=== PATIENT | male | born 1985 | race American Indian/Alaskan Native ===

== ENCOUNTER 2018-03-07 13:23 | Emergency (ER) | payer MEDICAID ==
[~2018-03-07] VITALS: Ht 170.2 cm; Wt 79.5 kg
[2018-03-07 13:54] VITALS: BP 108/71
== END 2018-03-07 14:14 | disposition home or self-care (01) ==
LOC: ER 13:23
DX: Z02.89 Encounter for other administrative examinations (principal); F15.90 Other stimulant use, unspecified, uncomplicated; F12.90 Cannabis use, unspecified, uncomplicated
CPT/HCPCS: 99281

== ENCOUNTER 2022-01-12 12:41 | Emergency (ER) | payer MEDICAID ==
[~2022-01-12] VITALS: Ht 170.2 cm; Wt 96.4 kg
[2022-01-12 12:46] VITALS: BP 140/85
[2022-01-12] MEDS ORDERED: sulfamethoxazole/trimethoprim DS (800/160mg) tablet PO ONE (14:50)
[2022-01-12] MEDS ORDERED: SULF1TAB49 PO (15:04)
== END 2022-01-12 15:22 | disposition home or self-care (01) ==
LOC: ER 12:41
DX: L02.415 Cutaneous abscess of right lower limb (principal); F15.10 Other stimulant abuse, uncomplicated; Z56.0 Unemployment, unspecified; Z79.899 Other long term (current) drug therapy
CPT/HCPCS: 99283

== ENCOUNTER 2024-11-21 07:22 | Emergency (ER) | payer MEDICAID ==
[~2024-11-21] VITALS: Ht 167.6 cm; Wt 92.0 kg
[2024-11-21] MEDS ORDERED: NO HOME MEDS (08:03)
--- NOTE | 2024-11-21 09:03 | Physician Documentation ---
History of Present Illness ~ Chief Complaint: Leg Pain Stated Complaint: RIGHT UPPER LEG PAIN Time Seen by MD: 07:29 Primary Medical Doctor: [facility] Mode of Arrival: EMS HPI 39 year old male fell onto concrete last night, struck lateral aspect of R thigh, reports difficulty walking and extreme pain. Denies LOC, other injury. Tetanus witin 5 years: No Medication Reconciliation Allergies: Coded Allergies: No Known Allergies (Unverified , 11/21/24) Miscellaneous Medications Home Med List (No Home Medications), (Reported) Past Medical History Past Medical History: No Pertinent History Past Surgical History: no surgical history Smoking Status: Unknown if ever smoked Alcohol Use: None Drug Use: methamphetamine Lives In: Homeless Review of Systems All Other Systems at this time: Reviewed and Negative Physical Exam Vital Signs: RN Vital Signs have been reviewed: Yes, Temperature: 99.1, Source: Oral, Heart Rate: 71, Respiratory Rate: 16, BP: 128/84, Pulse Oximetry: 97, Weight: 92.000 Physical Exam HEENT: PERRL, moist oral mucosa, EOMI Pulmonary: No respiratory distress MSK: no deformity; R lateral thigh +TTP at overlying ecchymosis and swelling Skin: w/d/i, no rash Neuro: alert, nonfocal Psych: normal affect Progress Results/Orders Results/Orders Orders - CHRISTIANO GEORGE MD Femur 2 Views (11/21/24 07:32) Completed Orders - CHRISTIANO GEORGE MD Femur 2 Views (11/21/24 07:32) Vital Signs 11/21/24 07:24 Temp 99.1 Pulse 71 Resp 16 B/P (MAP) 128/84 Pulse Ox 97 Medical Decision Making Findings 39 year old male s/p ground level fall onto R thigh. Xray unremarkable for fracture, dislocation, acute injury by my interpretation. Counseled, reassured, discharged with return precautions. Departure Disposition: HOME / SELF CARE / HOMELESS Impression: Primary Impression: Hematoma Additional Impression: Ecchymosis Condition: Stable Discharge Instructions: Contusion, [id number] Referrals: NO PRIMARY CARE PROVIDER (PCP) Education Educated: Patient Educated regarding: diagnosis, treatment, prognosis Signature Scribe Signature: . Attestation: . CHRISTIANO GEORGE MD Nov 21, 2024 09:03
--- NOTE | 2024-11-21 09:09 | RADIOLOGY REPORT ---
EXAM: DI FEMUR 2 VIEWS CLINICAL INDICATION: right thigh pain cannot bear weight TECHNIQUE: DI FEMUR 2 VIEWS Comparison: None FINDINGS/IMPRESSION: There is no evidence of acute fracture or dislocation. The visualized joint space is well maintained. The alignment is anatomical. There is no radiopaque foreign body.
[2024-11-21 09:10] VITALS: BP 127/80; PULSE 74; RESP 16; TEMP 98; O2SAT 98
== END 2024-11-21 09:12 | disposition home or self-care (01) ==
LOC: ER 07:23
DX: S70.11XA Contusion of right thigh, initial encounter (principal); R58 Hemorrhage, not elsewhere classified; F15.90 Other stimulant use, unspecified, uncomplicated; W22.09XA Striking against other stationary object, initial encounter; Y93.89 Activity, other specified; Y92.89 Other specified places as the place of occurrence of the external cause; Y99.8 Other external cause status
CPT/HCPCS: 73552; 99284